=== PATIENT | male | born 1960 | race Caucasian/White ===

== ENCOUNTER 2021-10-10 08:55 | Outpatient (CLI) | payer OTHER, SELFPAY ==
[2021-10-10 09:15] LABS: Basophils Absolute Auto 0.05 K/mm3 (0.00-0.10); Basophils Percent Auto 0.8 % (0.0-1.0); Eosinophils Absolute Auto 0.15 K/mm3 (0.02-0.50); Eosinophils Percent Auto 2.3 % (1.0-6.0); Hematocrit 42.3 % (40.0-54.0); Immature Granulocyte Absolute 0.02 K/mm3 (0.00-0.00); Immature Granulocyte Percent A 0.3 % (0.0-0.0); Lymphocytes Absolute Auto 2.04 K/mm3 (1.10-4.50); Lymphocytes Percent Auto 30.9 % (18.0-42.0); Mean Corpuscular HGB Conc 33.1 g/dL (32.0-36.0); Mean Corpuscular Hemoglobin 33.1 pg (27.0-31.0); Mean Platelet Volume 10.4 fl (8.7-11.0); Monocytes Absolute Auto 0.44 K/mm3 (0.10-0.90); Monocytes Percent Auto 6.7 % (2.0-11.0); Neutrophils Absolute Auto 3.9 K/mm3 (1.7-7.2); Platelet Count Result 214 K/mm3 (150-420); Red Blood Count 4.23 M/mm3 (4.70-6.10); Red Cell Distribution Width 12.7 % (11.6-14.4); White Blood Count 6.6 K/mm3 (4.8-10.8)
[2021-10-10 09:52] LABS: Alanine Aminotransferase 31 U/L (16-63); Albumin Level 3.8 g/dL (3.4-5.0); Alkaline Phosphatase 122 U/L (46-116); Anion Gap 10 mmol/L (8-16); Aspartate Amino Transferase 18 U/L (15-37); Bilirubin,Total 0.7 mg/dL (0.00-1.00); Blood Urea Nitrogen 15 mg/dL (7-18); Calcium 8.8 mg/dL (8.5-10.1); Carbon Dioxide 28 mmol/L (21-32); Chloride 105 mmol/L (98-108); Cholesterol 154 mg/dL (0-200); Estimated Glomerular Filt Rate > 60; Glucose 103 mg/dL (70-99); HDL Direct 41 mg/dL (40-60); LDL Cholesterol Calculated 102 mg/dL (<130); Osmolality Calculated 296 mOsm/kg (285-295); Prostate Specific Antigen 2.7 ng/mL (< OR = 4.0); Sodium 143 mmol/L (136-145); Total Protein 6.8 g/dL (6.4-8.2); Triglycerides 56 mg/dL (0-150)
== END 2021-10-10 08:56 | disposition home or self-care (01) ==
LOC: CHSLAB 08:57
PROVIDERS: PCP Family Medicine; Visit Provider Nurse Practitioner
DX: I10 Essential (primary) hypertension (principal); Z12.5 Encounter for screening for malignant neoplasm of prostate
CPT/HCPCS: 36415; 80053; 80061; 84153; 85025; G0103

== ENCOUNTER 2022-10-19 08:31 | Outpatient (CLI) | payer OTHER, SELFPAY ==
[2022-10-19 09:04] LABS: Hemoglobin A1C 5.5 % (<5.7)
[2022-10-19 09:56] LABS: Alanine Aminotransferase 34 U/L (16-63); Albumin Level 3.6 g/dL (3.4-5.0); Alkaline Phosphatase 130 U/L (46-116); Anion Gap 8 mmol/L (8-16); Aspartate Amino Transferase 15 U/L (15-37); Bilirubin,Total 0.6 mg/dL (0.00-1.00); Blood Urea Nitrogen 16 mg/dL (7-18); Calcium 8.8 mg/dL (8.5-10.1); Carbon Dioxide 31 mmol/L (21-32); Chloride 106 mmol/L (98-108); Cholesterol 162 mg/dL (0-200); Estimated Glomerular Filt Rate > 60; Glucose 94 mg/dL (70-99); HDL Direct 40 mg/dL (40-60); LDL Cholesterol Calculated 106 mg/dL (<130); Osmolality Calculated 301 mOsm/kg (285-295); Prostate Specific Antigen 2.7 ng/mL (< OR = 4.0); Sodium 145 mmol/L (136-145); Total Protein 6.9 g/dL (6.4-8.2); Triglycerides 80 mg/dL (0-150)
== END 2022-10-19 08:32 | disposition home or self-care (01) ==
LOC: CHSLAB 08:32
PROVIDERS: PCP Family Medicine; Visit Provider Family Medicine
DX: R73.01 Impaired fasting glucose (principal); Z12.5 Encounter for screening for malignant neoplasm of prostate; Z13.228 Encounter for screening for other metabolic disorders; Z13.220 Encounter for screening for lipoid disorders
CPT/HCPCS: 36415; 80053; 80061; 83036; 84153; G0103

== ENCOUNTER 2023-04-22 16:07 | Outpatient (CLI) | payer OTHER, SELFPAY ==
--- NOTE | ~2023-04-22 | US_ITS ---
EXAMINATION: US venous doppler [facility] DATE: 04/22/2023 16:45 INDICATION: Bilateral lower limb swelling TECHNIQUE: Pack scale images without and with compression and Doppler images of the bilateral lower e xtremity veins were obtained. COMPARISON: None FINDINGS: The right common femoral vein, profunda femoral vein, femoral vein, popliteal vein, peroneal trunk, p osterior tibial veins, and greater saphenous vein are patent. The left common femoral vein, profunda femoral vein, femoral vein, popliteal vein, peroneal trunk, po sterior tibial veins, and greater saphenous vein are patent. IMPRESSION: 1. Patent bilateral lower extremity veins. No evidence of deep venous thrombosis. Reviewed, dictated and finalized at location L. IMPRESSION: 1. Patent bilateral lower extremity veins. No evidence of deep venous thrombosi s.
== END 2023-04-22 16:08 | disposition home or self-care (01) ==
PROVIDERS: PCP Family Medicine; Visit Provider Family Medicine
DX: M79.605 Pain in left leg (principal); R60.0 Localized edema
CPT/HCPCS: 93970

== ENCOUNTER 2023-11-29 07:13 | Outpatient (CLI) | payer OTHER, SELFPAY ==
[2023-11-29 08:24] LABS: Alanine Aminotransferase 27 U/L (16-63); Albumin Level 3.4 g/dL (3.4-5.0); Alkaline Phosphatase 130 U/L (46-116); Anion Gap 8 mmol/L (4-12); Aspartate Amino Transferase 16 U/L (15-37); Bilirubin,Total 0.7 mg/dL (0.00-1.00); Blood Urea Nitrogen 12 mg/dL (7-18); Calcium 8.6 mg/dL (8.5-10.1); Carbon Dioxide 30 mmol/L (21-32); Chloride 107 mmol/L (98-108); Cholesterol 149 mg/dL (0-200); Estimated Glomerular Filt Rate > 60; Glucose 98 mg/dL (70-99); HDL Direct 38 mg/dL (40-60); LDL Cholesterol Calculated 99 mg/dL (<130); Osmolality Calculated 299 mOsm/kg (285-295); Potassium 3.8 mmol/L (3.5-5.1); Prostate Specific Antigen 3.6 ng/mL (< OR = 4.0); Sodium 145 mmol/L (136-145); Total Protein 6.4 g/dL (6.4-8.2); Triglycerides 61 mg/dL (0-150)
== END 2023-11-29 07:14 | disposition home or self-care (01) ==
PROVIDERS: PCP Family Medicine; Visit Provider Family Medicine
DX: Z13.228 Encounter for screening for other metabolic disorders (principal); Z12.5 Encounter for screening for malignant neoplasm of prostate; Z13.220 Encounter for screening for lipoid disorders
CPT/HCPCS: 36415; 80053; 80061; 84153; G0103

== ENCOUNTER 2024-09-06 07:13 | Outpatient (CLI) | payer MEDICARE, SELFPAY ==
--- OUTSIDE RECORDS SUMMARY | 2024-09-06 07:20 | XMS_ITS | Clinical Summary ---
Author Organization [facility] Address [facility]. 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 Gender Identity Not on file Sexual Orientation Not on file Plan of Treatment Health Maintenance Due Date Last Done Comments Colorectal Cancer Screening Colonoscopy (10 Years) 1960 Hepatitis C 1976 DTaP, Tdap and Td Vaccines ( 1 - Tdap) 1977 Zoster Vaccines (1 of 2) 2008 Pneumococcal Vaccine: 65+ Ye ars (1 of 1 - PCV) 2023 COVID-19 Vaccine (1 - 2023-2 5 season) 2024 Influenza Adult (#1) 2024 RSV Immunization or 60+ Years (1 - 1-dose 75+ series) 2033 Meningococcal B Vaccine Aged Out No l onger eligible based on patient's age to complete this topic Meningococcal Vaccine Aged Out No brittney chris eligible based on patient's age to complete this topic Pneumococcal Vaccine: Pediat rics (0 to 5 Years) and At-Risk Patients (6 to 64 Years) Aged Out No longer eligible b ased on patient's age to complete this topic RSV Immunizations Under 20 Months Aged Out No longer eligible based on patient's age to complete this topic
[2024-09-06 07:36] LABS: Basophils Absolute Auto 0.05 K/mm3 (0.00-0.10); Basophils Percent Auto 0.6 % (0.0-1.0); Eosinophils Absolute Auto 0.28 K/mm3 (0.02-0.50); Eosinophils Percent Auto 3.2 % (1.0-6.0); Hematocrit 41.7 % (37.0-46.0); Hemoglobin 13.9 g/dL (12.4-15.3); Immature Granulocyte Absolute 0.03 K/mm3 (0.00-0.00); Immature Granulocyte Percent A 0.3 % (0.0-0.0); Lymphocytes Absolute Auto 1.86 K/mm3 (1.10-4.50); Lymphocytes Percent Auto 21.1 % (18.0-42.0); Mean Corpuscular HGB Conc 33.3 g/dL (32-36); Mean Corpuscular Hemoglobin 32.9 pg (27.0-31.0); Mean Corpuscular Volume 98.6 fL (78.0-102.0); Mean Platelet Volume 10.5 fl (8.7-11.0); Monocytes Absolute Auto 0.56 K/mm3 (0.10-0.90); Monocytes Percent Auto 6.4 % (2.0-11.0); Neutrophils Absolute Auto 6.03 K/mm3 (1.70-7.20); Neutrophils Percent Auto 68.4 % (50.0-70.0); Platelet Count Result 236 K/mm3 (150-420); Red Blood Count 4.23 M/mm3 (4.70-6.10); Red Cell Distribution Width 13.3 % (11.6-14.4); White Blood Count 8.8 K/mm3 (4.8-10.8)
[2024-09-06 09:12] LABS: Alanine Aminotransferase 23 U/L (16-63); Albumin Level 3.9 g/dL (3.4-5.0); Alkaline Phosphatase 139 U/L (46-116); Anion Gap 10 mmol/L (4-12); Aspartate Amino Transferase 12 U/L (15-37); Bilirubin,Total 0.7 mg/dL (0.00-1.00); Blood Urea Nitrogen 14 mg/dL (7-18); Calcium 8.9 mg/dL (8.5-10.1); Carbon Dioxide 27 mmol/L (21-32); Chloride 106 mmol/L (98-108); Cholesterol 169 mg/dL (0-200); Estimated Glomerular Filt Rate > 60; Glucose 113 mg/dL (70-99); HDL Direct 40 mg/dL (40-60); LDL Cholesterol Calculated 114 mg/dL (<130); Osmolality Calculated 297 mOsm/kg (285-295); Potassium 3.5 mmol/L (3.5-5.1); Prostate Specific Antigen 5.5 ng/mL (< OR = 4.0); Sodium 143 mmol/L (136-145); Total Protein 6.7 g/dL (6.4-8.2); Triglycerides 73 mg/dL (0-150)
[2024-09-07 15:04] LABS: Hemoglobin A1C 5.4 % (<5.7)
[2024-09-08 09:58] LABS: Vitamin D 25 Hydroxy 55 ng/mL (30-100)
== END 2024-09-06 07:14 | disposition home or self-care (01) ==
LOC: CHSLAB 07:16
PROVIDERS: PCP Nurse Practitioner Family; Visit Provider Nurse Practitioner Family
DX: Z12.5 Encounter for screening for malignant neoplasm of prostate (principal); I10 Essential (primary) hypertension; E55.9 Vitamin D deficiency, unspecified
CPT/HCPCS: 36415; 80053; 80061; 82306; 83036; 84153; 85025; G0103

== ENCOUNTER 2024-09-08 07:15 | Outpatient (CLI) | payer MEDICARE, SELFPAY ==
--- NOTE | ~2024-09-08 | US_ITS ---
EXAMINATION: US aorta [facility] DATE: 09/08/2024 07:50 INDICATION: Abdominal aortic aneurysm screening with risk factors of hypertension, obesity and prior smoking TECHNIQUE: Grayscale, color Doppler, and pulsed Doppler images of the aorta and common iliac arteries were obtained. COMPARISON: None. FINDINGS: The proximal aorta measures 1.9 cm. The mid aorta measures 1.8 cm. The distal aorta measures 1.8 cm. The right common iliac artery measures 1.0 cm. The left common iliac artery measures 1.2 cm. IMPRESSION: 1. Normal caliber abdominal aorta Reviewed, dictated and finalized at location A. RIOR DESIGN CONSULTANT
--- OUTSIDE RECORDS SUMMARY | 2024-09-08 07:19 | XMS_ITS | Clinical Summary ---
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
== END 2024-09-08 07:16 | disposition home or self-care (01) ==
LOC: CHSIMG 07:17
PROVIDERS: PCP Nurse Practitioner Family; Visit Provider Nurse Practitioner Family
DX: Z87.891 Personal history of nicotine dependence (principal)
CPT/HCPCS: 76706

== ENCOUNTER 2024-10-26 16:37 | Emergency (ER) | payer MEDICARE, SELFPAY ==
[2024-10-26 16:37] VITALS: BP 164/88; PULSE 123; RESP 20; TEMP 36.8; O2SAT 97
--- NOTE | 2024-10-26 16:38 | ED.SKABFB ---
HPI - Skin/Abscess/Foreign Bdy General Chief complaint: Skin/Abscess/Foreign Body Stated complaint: rash Time Seen by Provider: 10/26/24 16:38 Source: patient Mode of arrival: ambulatory Limitations: no limitations History of Present Illness HPI narrative: Patient is a 64-year-old male with right under the breast chest rash that goes around to the back; this rash does not cross the midline. This has been a rash for 3 days. He was sick a few weeks ago. He did not get shingles vaccine. He had chickenpox as a child. No fever or other symptoms at this time. Pain is minimal. MD complaint: rash ( Right chest and back) Onset (ago): day(s) ( 3) Tetanus up to date: unsure Location: chest ( right) and back ( right) Severity: mild Severity scale (1-10): 2 Quality: burning and sharp Pain Consistency: constant Relieving factors: none Exacerbating factors: none Context: other ( patient is having right chest and back rash for the past 3 days) Associated symptoms: denies other symptoms Treatments prior to arrival: none Related Data Home Medications ?Medication ?Instructions ?Recorded ?Confirmed ?Last Taken ?Type omeprazole 20 mg capsule,delayed 20 mg PO DAILY 05/17/24 08/30/24 Unknown History release Allergies Allergy/AdvReac Type Severity Reaction Status Date / Time No Known Allergies Allergy Verified 10/26/24 16:38 Review of Systems Review of Systems: All systems reviewed & are unremarkable except as noted in HPI and below Constitutional: Constitutional: Reports no additional constitutional complaints Eyes: Eyes: Reports no additional eye complaints ENT: Reports system reviewed and no additional complaints, except as documented Cardiovascular: Cardiovascular: Reports no additional cardiovascular complaints Respiratory: Respiratory: Reports no additional respiratory complaints Gastrointestinal: Gastrointestinal: Reports no additional gastrointestinal complaints Genitourinary: Genitourinary: Reports no additional male genitourinary complaints Musculoskeletal: Musculoskeletal: Reports no additional musculoskeletal complaints Integumentary/Breasts: Skin/Breast: Reports system reviewed and no additional complaints, except as docu Neurologic: Reports system reviewed and no additional complaints, except as documented Psychiatric: Psychiatric: Reports no additional psychiatric complaints Endocrine: Endocrine: Reports no additional endocrine complaints Hematologic/Lymphatic: Hematologic/Lymphatic: Reports no additional hematologic/lymphatic complaints Allergic/Immunologic: Allergic/Immunologic: Reports no additional allergic/immunologic complaints [facility] Past Medical History Medical History Family hx of colon cancer grandmother, mother and his sister GERD (gastroesophageal reflux disease) Former smoker Hypertension Surgical History Surgical History Hx of cervical spine surgery Social History Social History Social History: caffeine 3 cups coffee/ 2 soda's daily Smoking status: Former smoker Tobacco type: cigarettes Smoking end date: 08/04/97 Alcohol intake: never Substance use: never Substance use type: does not use Lack of Transportation: No Lack of Food: Never True Current Housing: I Have Housing Concerned About Future Housing: No Difficulty Paying Gas/Electric Bills: No Difficulty Paying for Meds: No Currently Unemployed: No Education: High School Diploma/GED Difficulty w/ Childcare or Family Care: No Living arrangements: with family Gender identity (if verbalized by the patient): Male Exam Const: General: healthy appearing Nutritional Appearance: well nourished Orientation/consciousness: patient oriented x3 HENMT: Head: normal to inspection Ears: external ears normal Face/Nose/Sinus: Normal external nose present Eyes: Conjunctivae: conjunctivae normal Pupils: Equal, round and reactive pupils present EOM: EOMs intact bilaterally Neck: Neck: normal visual inspection Chest: Chest palpation & inspection: normal inspection of the chest Resp: Effort & Inspection: normal respiratory effort and not labored Auscultation: clear to auscultation bilaterally and no crackles Cardio: Rate: regular rate Rhythm: regular rhythm Heart sounds: no murmurs GI: Inspection: non-distended GI Palp: Yes Soft to palpation and No Tenderness to palpation present (GI) Auscultation: normal bowel sounds : General: Yes bladder normal to palpation Back/Spine/Pelvis: Back: no CVA tenderness Skin: General skin exam: normal color Rashes: rash noted Wounds: no wounds Other: right anterior chest from the midline around to the right back midline has a red erythema base and central macular papular type lesion to the rash is and early vesicles Neuro: General: patient oriented x3 Cranial nerves: Yes Nystagmus not present Speech: normal speech Gait exam (Neuro): Normal gait present Extrem: General: normal to inspection Psych: Mental Status: mental status grossly normal Affect: normal affect Attitude: cooperative Course Vital Signs Vital signs: Vital Signs Temperature 36.8 C 10/26/24 16:37 Pulse Rate 123 H 10/26/24 16:37 Respiratory Rate 20 10/26/24 16:37 Blood Pressure 164/88 H 10/26/24 16:37 Pulse Oximetry 97 10/26/24 16:37 Oxygen Delivery Room Air 10/26/24 16:37 Temperature 36.8 C 10/26/24 16:37 Pulse Rate 123 H 10/26/24 16:37 Respiratory Rate 20 10/26/24 16:37 Blood Pressure 164/88 H 10/26/24 16:37 Pulse Oximetry 97 10/26/24 16:37 Oxygen Delivery Room Air 10/26/24 16:37 MDM - Skin/Abscess/Foreign Bdy MDM Narrative Medical decision making narrative: patient is a 64-year-old male with right chest and right back rash for the past 3 days. This is shingles. Will do Valtrex and pain control. Discharge Plan Discharge Clinical Impression: Shingles Qualifiers: Herpes zoster complications: unspecified herpes zoster complication Qualified Code(s): B02.8 - Zoster with other complications Patient Disposition: Home, Self-Care Condition: Stable Instructions: Shingles (ED) Patient Language: Citizen Of [place] Prescriptions: New valacyclovir [Valtrex] 1 gram tablet 1,000 mg PO TID 7 Days Qty: 21 0RF hydrocodone-acetaminophen 5-325 mg tablet 1 tablet PO Q8H PRN (Reason: pain) Qty: 20 0RF No Action omeprazole 20 mg capsule,delayed release(DR/EC) 20 mg PO DAILY amlodipine-olmesartan 10-20 mg tablet 1 tablet PO DAILY Qty: 90 1RF Follow-up/Referrals: Leonor Lisa NP [Primary Care Provider] - Time of Disposition: 16:54
[2024-10-26 16:56] VITALS: BP 140/89; PULSE 107; RESP 18; O2SAT 96
[2024-10-26 17:02] VITALS: BP 134/82; PULSE 105; RESP 16; TEMP 36.8; O2SAT 97
--- OUTSIDE RECORDS SUMMARY | 2024-10-26 18:41 | XMS_ITS | Clinical Summary ---
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
== END 2024-10-26 17:02 | disposition home or self-care (01) ==
LOC: CHSED 16:59
PROVIDERS: Emergency Provider Emergency Medicine; PCP Nurse Practitioner Family
DX: B02.8 Zoster with other complications (principal); I10 Essential (primary) hypertension; Z87.891 Personal history of nicotine dependence
CPT/HCPCS: 99283

== ENCOUNTER 2024-12-03 00:15 | Day surgery (SDC) | payer MEDICARE, SELFPAY ==
[2024-11-16 10:10] VITALS: BMI 29.1
--- OUTSIDE RECORDS SUMMARY | 2024-11-26 00:29 | XMS_ITS | Clinical Summary ---
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
--- NOTE | 2024-11-26 08:04 | SUR.PREOP ---
Patient called at 0630 in regards to procedure today. Patient states his ride did not show up to bring him and canceled on him. He wishes to reschedule procedure at this time. Patient to call office later today.
[2024-11-30 09:56] VITALS: BMI 29.1
--- NOTE | 2024-11-30 10:09 | PC.NURSE ---
Patient stated nothing has changed when asked if any medical history has changed since last phone call. Did go through past medical history and educated patient on procedure. Patient is updated on new procedure date and time.
--- OUTSIDE RECORDS SUMMARY | 2024-12-03 00:17 | XMS_ITS | Clinical Summary ---
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
[2024-12-03 13:12] VITALS: BP 151/89; PULSE 87; RESP 20; TEMP 36.3; O2SAT 99
--- NOTE | 2024-12-03 13:15 | P.PNAN_ITS ---
Anes - Initial Pre Proc Eval Procedure: Operation Date: 12/03/24 14:30 Proposed Procedures p Screening Colonoscopy - Yosvany Pecaock MD Date/Time: 12/03/24 13:15 Surgeon: Yosvany Peacock MD Pre Op Diagnosis: screening colon Patient Data Age: 64 Gender: M Height: 1.8 m Weight: 95 kg Last Vital Signs Temp 36.3 C L 12/03/24 13:12 Pulse 87 12/03/24 13:12 Resp 20 12/03/24 13:12 BP 151/89 H 12/03/24 13:12 Pulse Ox 99 12/03/24 13:12 O2 Del Method Room Air 12/03/24 13:12 Allergies Allergy/AdvReac Type Severity Reaction Status Date / Time No Known Allergies Allergy Verified 12/03/24 13:10 Home Medications ?Medication ?Instructions ?Recorded ?Confirmed ?Type omeprazole 20 mg capsule,delayed 20 mg PO DAILY 05/17/24 12/03/24 History release amlodipine 10 mg-olmesartan 20 mg 1 tablet PO DAILY #90 tabs 07/12/24 12/03/24 Rx tablet valacyclovir 1 gram tablet 1,000 mg PO TID 7 days #21 tabs 10/26/24 12/03/24 Rx (Valtrex) Patient hx anesthesia problems: none Family hx anesthesia problems: none Results Review: All pre-operative results and documents have been reviewed as part of the pre- operative evaluation. [facility] Past Medical History Medical History Family hx of colon cancer grandmother, mother and his sister GERD (gastroesophageal reflux disease) Former smoker Hypertension Surgical History Surgical History Hx of cervical spine surgery Social History Social History Social History: caffeine 3 cups coffee/ 2 soda's daily Smoking status: Former smoker Tobacco type: cigarettes Smoking end date: 08/04/97 Alcohol intake: never Substance use: never Substance use type: does not use Lack of Transportation: No Lack of Food: Never True Current Housing: I Have Housing Concerned About Future Housing: No Difficulty Paying Gas/Electric Bills: No Difficulty Paying for Meds: No Currently Unemployed: No Education: High School Diploma/GED Difficulty w/ Childcare or Family Care: No Living arrangements: with family Gender identity (if verbalized by the patient): Male Rylie - Rama Final PreProcedure Day of Procedure 12/03/24 13:15 Patient weight: overweight Heart: regular rate and rhythm Lungs: clear to auscultation Airway: Mallampati scale class II Neurological: alert and oriented Last oral intake: >/= 8 hours ASA classification: II Emergent: no Anesthetic plan: proceed Anesthesia type and monitoring: general GIVS and standard monitoring Results Review: All pre-operative results and documents have been reviewed as part of the pre- operative evaluation. Informed Consent: The patient's anesthetic plan and its attendant risks and benefits were discussed with the patient/family/POA. Questions were solicited and answers pro vided to the satisfaction of the patient/family/POA.
[2024-12-03] MEDS: LACTATED RINGERS 1,000 ML 150 ML IV CONT (13:21)
--- NOTE | 2024-12-03 13:57 | PM.HPGS ---
History of Present Illness History of Present Illness Consent: Risks, benefits, and alternatives have been discussed and questions answered. Patient agrees to proceed with procedure. Chief complaint: screening colon Narrative: Massimo Barillas is a 64 year old male here for screening colonoscopy, last one 10 years ago Review of Systems Review of Systems: All systems reviewed & are unremarkable except as noted in HPI and below PMFSH Past Medical History Medical History (Updated 12/03/24 @ 13:57 by Yosvany Peacock MD) Colon cancer screening Family hx of colon cancer grandmother, mother and his sister GERD (gastroesophageal reflux disease) Former smoker Hypertension Surgical History Surgical History Hx of cervical spine surgery Social History Social History Social History: caffeine 3 cups coffee/ 2 soda's daily Smoking status: Former smoker Tobacco type: cigarettes Smoking end date: 08/04/97 Alcohol intake: never Substance use: never Substance use type: does not use Lack of Transportation: No Lack of Food: Never True Current Housing: I Have Housing Concerned About Future Housing: No Difficulty Paying Gas/Electric Bills: No Difficulty Paying for Meds: No Currently Unemployed: No Education: High School Diploma/GED Difficulty w/ Childcare or Family Care: No Living arrangements: with family Gender identity (if verbalized by the patient): Male Meds Home Medications and Allergies Home Medications ?Medication ?Instructions ?Recorded ?Confirmed ?Type omeprazole 20 mg capsule,delayed 20 mg PO DAILY 05/17/24 12/03/24 History release amlodipine 10 mg-olmesartan 20 mg 1 tablet PO DAILY #90 tabs 07/12/24 12/03/24 Rx tablet valacyclovir 1 gram tablet 1,000 mg PO TID 7 days #21 tabs 10/26/24 12/03/24 Rx (Valtrex) Allergies Allergy/AdvReac Type Severity Reaction Status Date / Time No Known Allergies Allergy Verified 12/03/24 13:10 Vital Signs Vital Signs - 24 hr 12/03/24 13:12 Temperature 97.3 F L Pulse Rate 87 Respiratory Rate 20 Blood Pressure 151/89 H Pulse Oximetry 99 Oxygen Delivery Room Air Exam Const: General: comfortable and no acute distress HENMT: Face/Nose/Sinus: Normal nares present Eyes: General: appearance normal, both eyes and all related structures Neck: Neck: no JVD Resp: Auscultation: clear to auscultation bilaterally Cardio: Rate: regular rate Rhythm: regular rhythm GI: Inspection: non-distended GI Palp: Yes Soft to palpation Skin: General skin exam: normal color Neuro: General: gait normal Speech: normal speech Extrem: General: normal to inspection Psych: Mental Status: mental status grossly normal Assessment and Plan Assessment and plan (1) Colon cancer screening: Code(s): Z12.11 - Encounter for screening for malignant neoplasm of colon Status: Acute Assessment and Plan: colonoscopy
--- NOTE | 2024-12-03 14:14 | S_PTH ---
PATIENT: Massimo Barillas LOC: [facility]#:[id number] AGE/SX: 64/M ROOM: RE12/03/[address]: Yosvany Peacock MD : 1960 BED: DIS: 12/03/2024 SPEC #: [id number] RECD: 12/03/24 14:37 STATUS: SAMMIE REQ #: [id number] BRENDON: 12/03/24 14:[address]: Yosvany Peacock DEPT: [facility] [place] Surgical RECD BY: Lila Donis ENTERED: 12/03/24 14:38 SP TYPE: Surgical OTHR DR: Leonor Lisa, TRENA Tissues: A - Colon Polypectomy B - Colon Polypectomy Procedures: Hematoxylin and Eosin Stain Gross and Microscopic Level 4
[2024-12-03 14:16] VITALS: BP 101/60; PULSE 67; RESP 16; O2SAT 99
[2024-12-03 14:23] VITALS: BP 114/91; PULSE 75; RESP 20; O2SAT 98
[2024-12-03 14:33] VITALS: BP 137/79; PULSE 76; RESP 20; O2SAT 98
== END 2024-12-03 14:50 | disposition home or self-care (01) ==
PROVIDERS: PCP Nurse Practitioner Family; Referring Provider Nurse Practitioner Family; Visit Provider Internal Medicine Gastroenterology
PROC: 0DJD8ZZ Inspection of Lower Intestinal Tract, Via Natural or Artificial Opening Endoscopic (ICD-10-PCS; CPT 45378; principal; 2024-12-03 14:30)
DX: Z12.11 Encounter for screening for malignant neoplasm of colon (principal); D12.4 Benign neoplasm of descending colon; K63.5 Polyp of colon; K64.8 Other hemorrhoids; K21.9 Gastro-esophageal reflux disease without esophagitis; I10 Essential (primary) hypertension; Z98.1 Arthrodesis status; Z87.891 Personal history of nicotine dependence; Z80.0 Family history of malignant neoplasm of digestive organs
CPT/HCPCS: 45385; 88305; J2003; J2704; J7120

== ENCOUNTER 2025-04-18 07:01 | Outpatient (CLI) | payer MEDICARE, SELFPAY ==
[2025-04-18 07:15] LABS: Hematocrit 40.0 % (37.0-46.0); Hemoglobin 13.4 g/dL (12.4-15.3); Immature Granulocyte Percent A 0.3 % (0.0-0.0); Lymphocytes Absolute Auto 1.97 K/mm3 (1.10-4.50); Mean Corpuscular HGB Conc 33.5 g/dL (32-36); Mean Corpuscular Hemoglobin 33.2 pg (27.0-31.0); Mean Corpuscular Volume 99.0 fL (78.0-102.0); Nucleated Red Blood Cells Absolute Auto 0.00 K/mm3 (0.00-0.00); Nucleated Red Blood Cells Perc 0.0 % (0-0.0); Platelet Count Result 231 K/mm3 (150-420); Red Blood Count 4.04 M/mm3 (4.70-6.10); White Blood Count 6.1 K/mm3 (4.8-10.8)
[2025-04-18 07:31] LABS: Hemoglobin A1C 5.6 % (<5.7)
[2025-04-18 07:33] LABS: Alanine Aminotransferase 18 U/L (6-50); Albumin Level 4.2 g/dL (3.5-5.1); Alkaline Phosphatase 105 U/L (38-126); Anion Gap 8 mmol/L (4-12); Aspartate Amino Transferase 20 U/L (17-59); Bilirubin,Total 0.8 mg/dL (0.2-1.3); Blood Urea Nitrogen 14 mg/dL (9-20); Calcium 9.8 mg/dL (8.4-10.2); Carbon Dioxide 30 mmol/L (22-30); Chloride 106 mmol/L (98-107); Cholesterol 168 mg/dL (0-200); Estimated Glomerular Filt Rate > 60; Glucose 107 mg/dL (65-110); HDL Direct 35 mg/dL; Magnesium 2.1 mg/dL (1.6-2.3); Osmolality Calculated 298 mOsm/kg (285-295); Potassium 3.8 mmol/L (3.4-5.0); Sodium 144 mmol/L (137-145); Total Protein 7.3 g/dL (6.3-8.2); Triglycerides 94 mg/dL (<150)
[2025-04-18 08:04] LABS: Thyroid Stimulating Hormone Reflex 4.560 uIU/mL (0.465-4.68)
[2025-04-18 08:22] LABS: Vitamin B12 359.0 pg/mL (239-931)
[2025-04-18 09:50] LABS: Free T4 Free Thyroxine Reflex 0.92 ng/dL (0.78-2.19)
[2025-04-20 16:00] LABS: Prostate Specific Antigen 6.2 ng/mL (< OR = 4.0)
== END 2025-04-18 07:02 | disposition home or self-care (01) ==
LOC: CHSLAB 07:04
PROVIDERS: PCP Family Medicine; Visit Provider Nurse Practitioner Family
DX: R97.20 Elevated prostate specific antigen [PSA] (principal); R73.9 Hyperglycemia, unspecified; I10 Essential (primary) hypertension; Z12.5 Encounter for screening for malignant neoplasm of prostate
CPT/HCPCS: 36415; 80053; 80061; 82607; 83036; 83735; 84153; 84439; 84443; 84480; 85025; G0103